=== PATIENT | female | born 1985 | race Hispanic/Latino ===

== ENCOUNTER → 2024-04-10 09:59 | Outpatient (CLI) | payer SELFPAY ==
--- NOTE | 2024-04-10 10:01 | DI.RAD.S_ITS ---
PROCEDURE: XR KNEE LT 3V INDICATIONS: knee pain, unable to bend or weight bear TECHNIQUE: 3 views of the knee were acquired. COMPARISON: None. FINDINGS: Bones: No fractures or dislocations. Mild arthritic changes noted with mild joint space narrowing in the medial compartment. No suspicious bony lesions. Soft tissues: No joint effusion. No suspicious soft tissue calcifications. IMPRESSION: Mild osteoarthritis with mild joint space narrowing in the medial compartment. Dictated by: Romeo Marie M.D. on 04/10/2024 at 10:58 Approved by: Romeo Marie M.D. on 04/10/2024 at 10:59
== END ==
LOC: RAD 10:01
PROVIDERS: Referring Provider Nurse Practitioner Family; Visit Provider Nurse Practitioner Family
DX: M25.569 Pain in unspecified knee (principal); S83.90XA Sprain of unspecified site of unspecified knee, initial encounter; M17.12 Unilateral primary osteoarthritis, left knee
CPT/HCPCS: 73562